=== PATIENT | female | born 1965 ===

== ENCOUNTER 2024-04-09 00:28 | Observation (INO) | payer MEDICAID, SELFPAY ==
[2024-04-08 20:11] VITALS: BP 182/122
--- NOTE | 2024-04-08 22:13 | ED.GENMED ---
History of Present Illness
<Stacey Tipton ESTER - Last Filed: 04/09/24 04:21>
General
Chief Complaint: Weakness
Source: patient
Exam Limitations: none
Time Seen by Provider: 04/08/24 22:00
Nursing documentation reviewed up to this point in time: agreed with
Travel History
Have you had any contact with someone who has COVID-19?: No
Do you have any symptoms of coronavirus? Fever > 100 degrees, chills, cough, shortness of breath, sore throat, loss of taste or smell, muscle aches, or headache?: No
History of Present Illness
History of Present Illness:
This is a 58 year old female with history of neuropathy, HTN, hypothyroidism, anxiety, depression, substance abuse who presents to the ED with complaint of recurrent fall x1 day. Patient was released from [facility] today, where she was
held for the past 5 weeks. She was waiting at the bus stop for approximately 4 hours to get to her motel where she experienced numbness and tingling down b/l extremities causing her to fall down about 5x within 4 hours. She states she hit her head
on the concrete, but denies LOC. She also complains of b/l knee pain with pain worse with the left knee. She was able to ambulate post fall, but states it is painful to do. She also reports associated fatigue. She denies lightheadedness/dizziness,
headache, visual disturbances, confusion, loss of extremity function, slurred speech/facial drooping. She denies change of bladder or bowel habits, chest pain, or worsening shortness of breath.
She admits having recurrent falls while at the [facility] and reports that this not evaluated because 'no one seem to care.' She has been on Methadone for the past 5 year. She is currently on 130mg. She reports she has not had her
methadone while at the [facility]. She also was not given her Pregabalin, but believes she was recieving the remainder of her 'usual medication.' She is unable to recall all of the names of her medications.
Review of Systems
<MARC Carlson - Last Filed: 04/09/24 04:21>
Review of Systems
Allergies reviewed?: Yes
All Other Systems: Not applicable
Constitutional: Reports fatigue
EENT: Reports no symptoms
Respiratory: Reports no symptoms
Cardiac: Reports no symptoms
ABD/GI: Reports no symptoms
: Reports no symptoms
Musculoskeletal: Reports other (b/l knee pain, difficulty ambulating )
Skin: Reports no symptoms
Neurological: Reports numbness (Numbness and tingling down b/l lower extremities )
Endocrine: Reports no symptoms
Hematologic/Lymphatic: Reports no symptoms
Psychiatric: Reports no symptoms
Phy Exam
<MARC Carlson - Last Filed: 04/09/24 04:21>
General Physical Exam
General Presentation: well appearing and no apparent distress
General age: appears older than age
General Skin: warm and dry
General Habitus: normal
General Mental: alert
General Hydration: appears well hydrated
ENT Exam
ENT Exam: EOMI, pharynx normal, neck supple and normocephalic
Eye Exam
Eye Exam: PERRL, cornea clear and conjunctiva normal
Cardiovascular Exam
Cardiovascular Exam: regular rate/rhythm, no edema, no murmur and normal peripheral pulses
Pulmonary Exam
Pulmonary Exam: lungs clear, no respiratory distress, no rales, no crackles, no rhonchi, no stridor, no wheezing and no cough
Gastrointestinal Exam
Gastrointestinal Exam: normal bowel sounds, non tender, soft, no organomegaly, no pulsatile mass and non distended
Neurological Exam
Neurological Exam: alert, oriented x3, no motor deficits and speech normal
Musculoskeletal Exam
Musculoskeletal Exam: full ROM, no edema, joint swelling (Mild left knee swelling, b/l superficial abrasions ) and other (No LUE function at baseline )
Skin Exam
Skin Exam: normal color, warm/dry, no rash and no petechia
Psychiatric Exam
Psychiatric Exam: normal mood/affect
Course
<MARC Carlson - Last Filed: 04/09/24 04:21>
Orders/Labs/Results
Orders:
Orders
04/08/24 22:32
PTT Urgent
Prothrombin Time Urgent
Urinalysis Reflex To Culture Urgent
Date Specimen was Collected: 04/09/24
Time Specimen was Collected: 03:01
Urine Drug Abuse Screen Urgent
Date Specimen was Collected: 04/09/24
Time Specimen was Collected: 03:01
04/08/24 22:33
Electrocardiogram (*1) Urgent
Reason for Study: QTc Monitoring
EKG- Treatment ONCE
04/08/24 22:34
CT Head W/o Iv Contrast Urgent
Comment:
Reason For Exam: Fall injury
CR Knee - Left 4 Or More View* Urgent
Reason For Exam: Fall injury
04/08/24 22:35
CR Knee- Right 4 Or More View* Urgent
Reason For Exam: Fall injury
04/09/24 00:09
Admit/Transfer Patient As Directed
Co-Sign Provider:
Level of Care: Observation services
Assign to:: Medical/Surgical
Physician / Group: Bertin estrella
Diagnosis: HTN urgency, recent imprisonment with falls, amb dysfunction
Case Management Consult ONCE
Case Management Consult: Discharge Planning
04/09/24 00:11
Code Status As Directed
Resuscitation Status: Full Code
04/09/24 00:14
Labetalol HCl [Trandate] 5 mg IV NOW STA
04/09/24 00:27
Complete Blood Count/With Diff Urgent
Comment: REDRAW
04/09/24 00:30
Acetaminophen [Tylenol] 650 mg PO Q4HPRN PRN
Bisacodyl [Dulcolax] 10 mg RECTAL [id number] PRN
Docusate W/Senna [Senokot-S] 1 tablet PO BIDPRN PRN
Ondansetron Injectable [Zofran] 4 mg IV Q6HPRN PRN
Oxycodone [Roxicodone] 5 mg PO Q4HPRN PRN
Polyethylene Glycol Powder [Miralax] 17 grams PO DAILYPRN PRN
04/09/24 00:30
Activity As Directed
Activity Level: As Tolerated
Vital Signs As Directed
Frequency: Per unit guidelines
Ot Eval And Treat Routine
Pt Eval And Treat Routine
Activity Level: As Tolerated
DX Deep Vein Thrombosis Video Routine
04/09/24 08:00
Heparin 5,000 units SC Q12
04/09/24 Lunch
Regular
At Your Request: Full Participation
Abnormal Lab Results
04/09/24
00:27
MCH 26.9 L pg
(27.0-31.0)
MCHC 32.0 L g/dL
(33.0-37.0)
RDW 17.0 H %
(11.5-14.5)
Abs Immat Gran (auto) 0.1 H 10^3/uL
(0-0.05)
Absolute Monos (auto) 0.8 H 10^3/uL
(0.1-0.6)
Immature Gran % 1.1 H %
(0-0.5)
Lymphocytes % 19.5 L %
(20.5-51.1)
04/09/24 00:27
04/09/24 00:27
Vital Signs
Initial and Last Documented VS:
Initial Vital Signs
Temp Pulse Resp BP Pulse Ox
97.5 F 108 24 182/122 96
04/08/24 20:11 04/08/24 20:11 04/08/24 20:11 04/08/24 20:11 04/08/24 20:11
Last Documented Vital Signs
Temp Pulse Resp BP Pulse Ox
97.6 F 79 18 145/88 95
04/09/24 00:45 04/09/24 00:45 04/09/24 00:45 04/09/24 00:45 04/09/24 00:55
<Fernandez Akers, DO - Last Filed: 04/09/24 00:11>
Orders/Labs/Results
Orders:
Orders
04/08/24 22:32
PTT Urgent
Prothrombin Time Urgent
Urinalysis Reflex To Culture Urgent
Date Specimen was Collected: 04/09/24
Time Specimen was Collected: 03:01
Urine Drug Abuse Screen Urgent
Date Specimen was Collected: 04/09/24
Time Specimen was Collected: 03:01
04/08/24 22:33
Electrocardiogram (*1) Urgent
Reason for Study: QTc Monitoring
EKG- Treatment ONCE
04/08/24 22:34
CT Head W/o Iv Contrast Urgent
Comment:
Reason For Exam: Fall injury
CR Knee - Left 4 Or More View* Urgent
Reason For Exam: Fall injury
04/08/24 22:35
CR Knee- Right 4 Or More View* Urgent
Reason For Exam: Fall injury
04/09/24 00:09
Admit/Transfer Patient As Directed
Co-Sign Provider:
Level of Care: Observation services
Assign to:: Medical/Surgical
Physician / Group: Bertin rubinists
Diagnosis: HTN urgency, recent imprisonment with falls, amb dysfunction
Case Management Consult ONCE
Case Management Consult: Discharge Planning
04/09/24 00:11
Code Status As Directed
Resuscitation Status: Full Code
04/09/24 00:14
Labetalol HCl [Trandate] 5 mg IV NOW STA
04/09/24 00:27
Complete Blood Count/With Diff Urgent
Comment: REDRAW
04/09/24 00:30
Acetaminophen [Tylenol] 650 mg PO Q4HPRN PRN
Bisacodyl [Dulcolax] 10 mg RECTAL [id number] PRN
Docusate W/Senna [Senokot-S] 1 tablet PO BIDPRN PRN
Ondansetron Injectable [Zofran] 4 mg IV Q6HPRN PRN
Oxycodone [Roxicodone] 5 mg PO Q4HPRN PRN
Polyethylene Glycol Powder [Miralax] 17 grams PO DAILYPRN PRN
04/09/24 00:30
Activity As Directed
Activity Level: As Tolerated
Vital Signs As Directed
Frequency: Per unit guidelines
Ot Eval And Treat Routine
Pt Eval And Treat Routine
Activity Level: As Tolerated
DX Deep Vein Thrombosis Video Routine
04/09/24 08:00
Heparin 5,000 units SC Q12
04/09/24 Lunch
Regular
At Your Request: Full Participation
Abnormal Lab Results
04/09/24
00:27
MCH 26.9 L pg
(27.0-31.0)
MCHC 32.0 L g/dL
(33.0-37.0)
RDW 17.0 H %
(11.5-14.5)
Abs Immat Gran (auto) 0.1 H 10^3/uL
(0-0.05)
Absolute Monos (auto) 0.8 H 10^3/uL
(0.1-0.6)
Immature Gran % 1.1 H %
(0-0.5)
Lymphocytes % 19.5 L %
(20.5-51.1)
04/09/24 00:27
04/09/24 00:27
Vital Signs
Initial and Last Documented VS:
Initial Vital Signs
Temp Pulse Resp BP Pulse Ox
97.5 F 108 24 182/122 96
04/08/24 20:11 04/08/24 20:11 04/08/24 20:11 04/08/24 20:11 04/08/24 20:11
Last Documented Vital Signs
Temp Pulse Resp BP Pulse Ox
97.6 F 79 18 145/88 95
04/09/24 00:45 04/09/24 00:45 04/09/24 00:45 04/09/24 00:45 04/09/24 00:55
<MARC Carlson - Last Filed: 04/09/24 04:21>
MDM/Problems Addressed
Differential Diagnosis Includes:
Dehydration, seizure, vertigo, cauda equina, medication withdrawal
<MARC Carlson - Last Filed: 04/09/24 04:21>
*Critical Care Note
Total Time (30-74mins, 75-104mins- exclusive of procedures): Not Applicable
<Fernandez Akers DO - Last Filed: 04/09/24 00:11>
Update Note
Update Note:
NAME: DANIEL OSORIO
DATE OF EXAM: 04/08/2024
Patient No: [id number]
Physician: VELMA
Date of : 1965
Past Medical History (entered by Technologist):
Reason For Exam (entered by Technologist): ? fall
Other Notes (entered by Technologist): THIS MORNING PT HAD SEVERAL FALLS AND GUARDS HAD TO LIFT HER UP TO GO TO COURT. PT RELEASED FROM [facility] TODAY AND WAS AT THE BUS STOP FOR 4 HOURS. PT WITH FALLS ON THE WAY TO THE BUS STOP. PT
WANTS TO GO TO METHADONE CLINIC. C/O KNEE PAIN, HIT HEAD ON SIDEWALK, GENERALIZED PAIN AND WEAKNESS.
Additional Information (per Vision Radiologist):
CT head without contrast
IMPRESSION:
No acute intracranial process.
No intracranial bleed.
No calvarial fracture.
Mild periventricular hypodensity likely related to chronic small vessel ischemic disease.
Results finalized at 11:30 PM ET.
ED Attending Note
<MARC Carlson - Last Filed: 04/09/24 04:21>
-
Portions of this chart may have been created with voice recognition software.� Occasional wrong word or��sound alike� substitutions may have occurred due to the inherent limitations of voice recognition software.
<Fernandez Akers DO - Last Filed: 04/09/24 00:11>
ED Attending Note
Patient seen and examined by attending physician: Yes
I performed the substantive portion of visit, reviewed & personally made and approve the management plan that is documented in note by myself or TUSHRA.: Yes
ED Attending Note:
This is a 58-year-old female that presents after having frequent falls. Patient lives in [place] and was in town several months ago visiting her mom who went into assisted living. Patient had a fall and went to [facility]. While there,
she was accused of assaulting a nurse so she was sent to [facility] assisted. During her time in assisted patient states that she fell many times. She states that she struck her head several times. She reports having had to be assisted by custodial guards
to get her into a wheelchair to go to court. After 5 weeks in assisted, she was set free. She was given a one-way ticket to a hotel in [facility]. She also has a methadone clinic appointment for tomorrow morning. She went to the bus stop
and stated that she waited for over 4 hours with no bus arrival. Patient states that she then fell so she was brought here by EMS. Patient was seen in conjunction with the PA student. I have reviewed and agree with the history and treatment plan
presented. On my independent physical exam, patient is awake, alert, and oriented x3. She is complaining of chronic back pain and bilateral knee pain. She states that she is generally weak. Skin has multiple scars on both upper extremities. She
does move all [address] of the head is negative. Bilateral knees are negative.
Patient to be brought into the hospital for continued observation and case management evaluation
Discharge Plan
Departure
Patient Disposition: Admit
Date of Disposition: 04/09/24
Time of Disposition: 00:10
Admit to: Med/Surg
Presentation/result/management discussed w/ accepting MD/DO: Hospitalist
Discharge Problem:
Weakness, Frequent falls
Interventions
Interventions:
*Risk Screen - Suicide Last Done: 04/08/24 23:10
*General Assessment Last Done: 04/08/24 23:10
*Neglect/Abuse Screening Last Done: 04/08/24 23:10
ED- Fall Risk Assessment Last Done: 04/08/24 21:29
*ED COVID-19 Vaccine History Last Done: 04/08/24 21:29
*Nursing Disposition Last Done: 04/09/24 00:41
ED- Cardiac Assessment Last Done: 04/08/24 21:30
ED-Musculoskeletal Assessment Last Done: 04/08/24 21:30
ED- Neurological Assessment Last Done: 04/08/24 21:30
ED- Pulmonary Assessment Last Done: 04/08/24 21:30
ED-Skin Assessment Last Done: 04/08/24 21:30
Discharge Date and Time
Discharge Date/Time: 04/09/24 00:42
[2024-04-09] MEDS: TRANDATE 5 MG IV (00:35)
[2024-04-09 00:38] LABS: % Basophils 0.4 % (0-2); % Eosinophils 1.6 % (0-6); % Immature Granulocytes 1.1 % (0-0.5); % Lymphocytes 19.5 % (20.5-51.1); % Monocytes 8.2 % (1.7-9.3); % Neutrophils 69.2 % (42.2-75.2); Absolute Eosinophils 0.2 10^3/uL (0-0.7); Absolute Immature Granulocytes 0.1 10^3/uL (0-0.05); Absolute Lymphocytes 1.8 10^3/uL (1.2-3.4); Absolute Monocytes 0.8 10^3/uL (0.1-0.6); Absolute Neutrophils 6.5 10^3/uL (1.4-6.5); Hemoglobin 14.1 g/dL (12.0-16.0); Mean Corpuscular Hgb 26.9 pg (27.0-31.0); Nucleated Red Blood Cells % 0 %; Platelet Count 209 10^3/uL (130-400); Red Blood Cell Count 5.24 10^6/uL (4.20-5.40); White Blood Cell Count 9.4 10^3/uL (4.8-10.8)
[2024-04-09 00:45] VITALS: BP 145/88; BMI 20.9
[2024-04-09 00:45] LABS: INR 0.99; PT 12.9 Sec (11.4-14.6)
[2024-04-09 00:46] LABS: APTT 30.7 Sec (23.4-35.0)
--- NOTE | 2024-04-09 00:48 | HPS.HSE ---
Family Physician
-
Family Physician: * NONE
Chief Complaint
-
weakness
History of Present Illness
58 y/o F hx of neuropathy, HTN, Hypothyroidism, anxiety/depression/substance abuse on Methadone presents to ER for recurrent falls. She was released from nursing home today (held for 5 weeks). Today at bus stop she experienced numbness/tingling down her
legs and fell 5 times in 4 hours. She reports hitting head on concrete, no LOC. She reports b/l knee pain. reports ambulation is painful due to falls. She is also tired/fatigued. No other complaints. She reports at nursing home she also had recurrent
falls but it was not addressed. She reports not receiving her Metahadone (on it for 5 years) or Lyrica.
She received her other usual meds but does not recall or have a list of them.
Medical History
Past Medical History
Past Medical History: Reports Other (back pain, neuropathy, HTN, hypothyroidism, anxiety, depression, substance abuse, hypothyroidism)
Past Surgical History: Reports Orthopedic
Social History
Tobacco: Non-smoker
Alcohol: None
Drug: Former User
Family History
Family History: Not pertinent
Allergies / Home Medications
Allergies reflects when Allergies were last updated in [facility].
Home Medications with original date entered in [facility]
Allergy/Medication List:
n/A
If medication reconciliation has not been performed, why?: Medication List N/A
Review of Systems
-
A 12 point ROS was completed and negative except as noted: Yes
Physical Exam
Vital Signs
Vital Signs
Temp Pulse Resp BP Pulse Ox
97.5 F 108 24 182/122 96
04/08/24 20:11 04/08/24 20:11 04/08/24 20:11 04/08/24 20:11 04/08/24 20:11
Physical Exam
General: Well Developed and No Apparent Distress
HEENT: NormoCephalic and Anicteric
Respiratory: Clear; No Wheezes or Rales
Cardiac: S1/S2 and Regular Rhythm
Neuro: AO x 3
Hematologic/Lymphatic: No Lymphadenopathy
Psych: Calm
Laboratory Results
-
04/09/24 00:27
Laboratory Results
PT 12.9 Sec (11.4-14.6) 04/09/24 00:27
INR 0.99 04/09/24 00:27
APTT 30.7 Sec (23.4-35.0) 04/09/24 00:27
Total Bilirubin Cancelled 04/09/24 00:27
AST Cancelled 04/09/24 00:27
ALT Cancelled 04/09/24 00:27
Alkaline Phosphatase Cancelled 04/09/24 00:27
Troponin I Cancelled 04/09/24 00:27
Lipase Cancelled 04/09/24 00:27
Data Reviewed
-
Diagnostic Radiology: Report Reviewed by me
Lab Data: Labs Reviewed by me
Impression/Plan
-
Assessment:
Ambulatory dysfunction
Recurrent falls
Underlying hx of back pain, neuropathy chronically
- PT/OT
- Knee xrays, CT head negative
- check orthostatics VS
- check TSH
- check UDS
- start lyrica 25mg for neuropathy; will need to confirm prior dose
Essential HTN with urgency
- s/p 1 dose Labetalol in ER
- start Lopressor 25mg BID; first dose now
Hypothyroidism
- check TSH
- start conservative dose of 50mcg daily
Anxiety/Depression
- unclear which meds she is on
Hx of substance abuse
- previously on Methadone but with nursing home stay, unclear if received. Will need to investigate in AM
- baseline EKG for QTc
DVT ppx: SC heparin
Code: Full
[2024-04-09] MEDS: ROXICODONE 5 MG PO ×3 (00:51→10:13)
--- NOTE | 2024-04-09 03:49 | DOWNTIME ---
There was a [employer] Downtime on 04/08/2024 from 0100 to 04/09/2024 at 0300. Downtime documentation of patient's care, including medication administrations, has been reconciled in the electronic record per guidelines. Refer to the
patient's paper chart under the miscellaneous tab to see printed paper medication records and downtime forms.
[2024-04-09 03:50] LABS: Urine Albumin Negative (Neg - Trace); Urine Bilirubin Negative (Negative); Urine Character Clear (Clear); Urine Color Yellow; Urine Glucose Negative (Negative); Urine Ketone Negative (Negative); Urine Leukocyte Trace (Negative); Urine Nitrite Negative (Negative); Urine Occult Blood Negative (Negative); Urine Specific Gravity 1.015 (<1.030); Urine Urobilinogen Negative (Neg - 1+)
--- NOTE | 2024-04-09 03:50 | PTCARENOTE ---
Pt received from ED at approx 0045. Stood and pivoted from stretcher to bed with assist x1, single point cane at bedside. Skin assessment completed as documented. Pt AAOx3, VSS, admission completed. Pt stated she has used Fentanyl in the last 12
months. When asked timeline, she stated 'it's been months.' COWS score 0. LOREN Barroso notified of drug misuse, no new orders.
Call harris within reach, pt verbalizes understanding of use.
[2024-04-09 04:02] LABS: Amphetamines Negative (Negative); Barbiturates Negative (Negative); Benzodiazepines Negative (Negative); Buprenorphine Negative (Negative); Cocaine Negative (Negative); Methadone Negative (Negative); Methamphetamines Negative (Negative)
[2024-04-09 04:03] LABS: Marijuana Negative (Negative); Opiates Negative (Negative); Phencyclidine Negative (Negative); Tricyclic Antidepressants Positive (Negative)
[2024-04-09 04:06] LABS: HCG, Urine Qualitative Screen Negative
[2024-04-09 04:14] LABS: Fentanyl, Urine Negative (Negative); Urine Squamous Cell >30 /LPF (Few)
[2024-04-09 04:15] LABS: Urine Bacteria Few (Negative)
[2024-04-09 04:27] LABS: Troponin I 0.025 ng/ml
[2024-04-09 04:35] LABS: TSH Reflex To Free T4 7.59 uIU/ml (0.47-4.68)
[2024-04-09 05:00] LABS: Free T4 1.12 ng/dl (0.78-2.19)
[2024-04-09] MEDS: SYNTHROID 50 MCG PO (05:17)
[2024-04-09 06:40] LABS: Mean Corp Hgb Conc. 33.3 g/dL (33.0-37.0); Mean Corpuscular Hgb 27.3 pg (27.0-31.0); Mean Platelet Volume 10.1 fL (7.4-10.4); Platelet Count 193 10^3/uL (130-400); Red Blood Cell Count 5.12 10^6/uL (4.20-5.40); Red Cell Dist. Width 17.1 % (11.5-14.5); White Blood Cell Count 6.2 10^3/uL (4.8-10.8)
[2024-04-09 07:00] VITALS: BP 139/84
[2024-04-09 07:20] LABS: Lipase 72 U/L (23-300)
[2024-04-09] MEDS: HEPARIN 5000 UNITS SC (07:46)
[2024-04-09] MEDS: LOPRESSOR 25 MG PO (07:46)
[2024-04-09] MEDS: LYRICA 25 MG PO (07:46)
[2024-04-09 09:01] LABS: ALT (SGPT) 18 U/L (0-35); AST (SGOT) 26 U/L (14-36); Albumin 3.9 g/dl (3.5-5.0); Alkaline Phosphatase 104 U/L (38-126); Blood Urea Nitrogen 18 mg/dl (7-17); Calcium 9.6 mg/dl (8.4-10.2); Carbon Dioxide 23 mmol/L (22-30); Chloride 106 mmol/L (98-107); Estimated Creatinine Clearance 82 ml/min; Glucose 90 mg/dl (70-99); Sodium 141 mmol/L (135-145); Total Bilirubin 0.4 mg/dl (0.2-1.3); Total Protein 6.7 g/dl (6.3-8.2); eGFR > 60.00
[2024-04-09] MEDS: TYLENOL 650 MG PO (10:10)
--- NOTE | 2024-04-09 10:19 | W.PN.HOSP.TC ---
Addendum entered and electronically signed by Boaz Flowers DO 04/09/24 13:01:
Not orthostatic based on vitals.
Physical therapy recommending SNF. Patient refusing and wants to go home. High risk for recurrent falls and injury. Patient understands. Rolling walker prescription provided to case management. Needs close outpatient follow-up. She wants to go
to her methadone clinic tomorrow. Will need outpatient physical therapy.
Original Note:
Today's Communication/Plan
-
Orthostatics
PT/OT
Assessment / Plan
Assessment / Plan
Gen-AAOx3, NAD
HEENT-NC, AT, anicteric, clear oral mm
Neck-supple
CV-reg, no M, +S1/S2
Lungs-clear B/L
Abd-soft, NT, ND
Ext-no edema
Musculoskeletal-no cyanosis, clubbing
Skin-warm and dry
Neuro-grossly non-focal
Psych-calm, cooperative
Ambulatory dysfunction/recurrent falls -likely multifactorial etiology including neuropathy. No trauma noted on x-rays. Check orthostatics. PT/OT. Was ambulating with a cane before she was imprisoned 5 weeks ago.
Essential hypertension/urgency -urgency resolved.
Hypothyroidism -patient claims she was not on 100 mcg daily of levothyroxine. She claims they were not giving her this medicine in [facility]. TSH 7.5, free T4 1.1. Levothyroxine 50 mcg started last night. Recommend close
outpatient follow-up with her PCP in [place].
Anxiety/depression
History of substance abuse -denies history of IVDA. Was snorting fentanyl, last use reportedly in December. In December she was hospitalized for about a month for pneumonia. COVID-19 infection. She plans to return to her methadone clinic.
Reportedly has been off of methadone for the past 5 weeks while in retirement.
Full code
Dispo -patient eager to go home today. Await PT/OT input. Await orthostatics.
Anticipated Discharge: Today
Subjective/Interval History
-
Date of Service: April 09, 2024
Patient seen and examined. Complaining of back pain.
Objective Data
-
Labs:
Laboratory Results
04/08/24 04/09/24 04/09/24
23:58 00:27 03:38
WBC Cancelled 9.4
Hgb Cancelled 14.1
Hct Cancelled 44.0
Plt Count Cancelled 209
PT 12.9
INR 0.99
APTT 30.7
Sodium Cancelled Cancelled Cancelled
Potassium Cancelled Cancelled Cancelled
Chloride Cancelled Cancelled Cancelled
Carbon Dioxide Cancelled Cancelled Cancelled
BUN Cancelled Cancelled Cancelled
Creatinine Cancelled Cancelled Cancelled
Glucose Cancelled Cancelled Cancelled
Calcium Cancelled Cancelled Cancelled
Total Bilirubin Cancelled Cancelled Cancelled
AST Cancelled Cancelled Cancelled
ALT Cancelled Cancelled Cancelled
Alkaline Phosphatase Cancelled Cancelled Cancelled
04/09/24 04/09/24
06:01 07:43
WBC 6.2
Hgb 14.0
Hct 42.0
Plt Count 193
PT
INR
APTT
Sodium Cancelled 141
Potassium Cancelled 4.0
Chloride Cancelled 106
Carbon Dioxide Cancelled 23
BUN Cancelled 18 H
Creatinine Cancelled 0.5 L
Glucose Cancelled 90
Calcium Cancelled 9.6
Total Bilirubin Cancelled 0.4
AST Cancelled 26
ALT Cancelled 18
Alkaline Phosphatase Cancelled 104
Vital Signs:
Vital Signs
Temp Pulse Resp BP Pulse Ox
97.5 F 91 18 139/84 98
04/09/24 07:00 04/09/24 07:46 04/09/24 07:00 04/09/24 07:46 04/09/24 07:00
I&O
04/08/24 04/09/24 04/10/24
06:59 06:59 06:59
Intake Total 480 / 480
Balance 480 / 480
Review of Systems
-
History Source: Patient
All other systems: Reviewed and negative
[2024-04-09 10:51] VITALS: BP 112/81; BP 113/68; BP 123/73
--- NOTE | 2024-04-09 12:01 | CM ---
Addendum entered by Deana Aragon 04/09/24 15:05:
Pt requesting ride - unable to obtain ride from family/friends
Requested ride to [facility] in [address] - her boyfriend has reserved room for her there for 2 nights per pt
Lyft ride set up for pt
Received rolling walker from PT
Plan - discharge - declined snf
Original Note:
Met with pt at [facility]
Reports lives alone in a condo in [place]. Was recently at [facility] and released yesterday. Before being at the facility she was on Methadone. [facility] and would like to keep appointment. Originally from [place]
Was independent in the past. Feels she is deconditioned since being at the [facility].
DME - cane
SNF/HH - denies past history
PCP - none
Pharm - [facility]
PT/OT recommending SNF - pt declined SNF. Wants to keep appointment at methadone clinic tomorrow. Has no PCP - would need PCP for home care
Plan - anticipate home - declined SNF
--- NOTE | 2024-04-09 12:23 | PHANOTE ---
Addendum entered and electronically signed by Rikki Cevallos [facility] 04/09/24 12:58:
Patient would like to use [facility] [address] [place] [address]
Original Note:
Patient uses [facility] or [facility] in [facility]. She is open to using a local [facility] in [place] upon discharge.
--- NOTE | 2024-04-09 13:00 | W.DS.TRANS ---
DC Summary - Rigging Slinger
-
Discharge Instructions:
Discharge Diagnosis/Procedures Ambulatory dysfunction
Diet Regular
Activity As tolerated
Driving Restrictions No driving
Bathing Restrictions None
Instructions:
Stand-Alone Forms:
Changes to Home Medications: No
Discharge Medications:
DC Medications w/original date entered in [employer]
albuterol sulfate 90 mcg/actuation aerosol inhaler 1 puff inhalation Q4 PRN wheezing, SOB 04/09/24
amlodipine 5 mg tablet 5 mg PO DAILY Blood Pressure 04/09/24
budesonide-formoterol HFA 160 mcg-4.5 mcg/actuation aerosol inhaler (Symbicort) 2 puff inhalation BID COPD 04/09/24
fluticasone furoate 100 mcg-vilanterol 25 mcg/dose inhalation powder (Breo Ellipta) 1 inh inhalation DAILY COPD 04/09/24
ipratropium 0.5 mg-albuterol 3 mg (2.5 mg base)/3 mL nebulization soln 3 ml inhalation Q4H PRN SOB, WHEEZING 04/09/24
levothyroxine 100 mcg tablet 100 mcg PO DAILY Thyroid 04/09/24
lorazepam 1 mg tablet 1 mg PO Q6H PRN anxiety, sleep 04/09/24
oxycodone 10 mg tablet 10 mg PO Q4HPRN PRN severe pain #15 tabs 04/09/24
pregabalin 300 mg capsule 300 mg PO BID Pain 04/09/24
sennosides 8.6 mg-docusate sodium 50 mg tablet (Stool Softener-Stimulant Laxative) 1 tab PO BIDPRN PRN constipation #0 tabs 04/09/24
Home Medication Changes
Pending Results: No
== END 2024-04-09 14:40 | disposition home or self-care (01) ==
LOC: 3 WEST ACU 00:28
PROVIDERS: ADMITTING PHYSICIAN Internal Medicine; ATTENDING PHYSICIAN Hospitalist; EMERGENCY PHYSICIAN Student in an Organized Health Care Education/Training Program
DX: R26.2 Difficulty in walking, not elsewhere classified (principal); R53.1 Weakness; G62.9 Polyneuropathy, unspecified; I16.0 Hypertensive urgency; M17.11 Unilateral primary osteoarthritis, right knee; I10 Essential (primary) hypertension; E03.9 Hypothyroidism, unspecified; F41.9 Anxiety disorder, unspecified; F32.A Depression, unspecified; W18.39XA Other fall on same level, initial encounter; Y93.89 Activity, other specified; Y92.89 Other specified places as the place of occurrence of the external cause; F11.20 Opioid dependence, uncomplicated; R53.83 Other fatigue; M25.561 Pain in right knee; M25.562 Pain in left knee; Z91.81 History of falling
CPT/HCPCS: 70450; 73564; 80053; 80306; 80307; 81003; 81015; 81025; 83690; 84439; 84443; 84484; 85025; 85027; 85610; 85730; 87070; 87086; 93005; 97163; 97167; 99285; G0378